=== PATIENT | male | born 1965 | race Caucasian/White ===

== ENCOUNTER → 2017-02-06 | Day surgery (SDC) | payer BC ==
[~2017-02-06] MED LIST: AUGMENTIN PO; CORTENEMA100 MG/60 PR; FLAGYL250 M1 PO; JARDIANCE25 MG PO; METFORMIN HCL500 M4 PO; NEXIUM PO; NEXIUM20 MG; PERCOCET 5-3251 TAB PO; PERCOCET 5/321 UDTAB PO
--- NOTE | ~2017-02-06 | OR ---
Unit #: [id number] #: [id number] Patient: GLEN AGUIRRE [id number] [facility] [address] [place], [place] [address] [id number] MR#: [id number] NAME: GLEN AGUIRRE. ROOM: Date of Procedure: 02/06/2017 Admission Date: 02/06/2017 Surgeon: Humberto Gutierres M.D. : 1965 Attending Physician: Humberto Gutierres M.D. Primary Care Physician: Shira French M.D. OPERATIVE REPORT PRIMARY CARE PHYSICIAN Shira French M.D. PREOPERATIVE DIAGNOSES Hematochezia and personal history of polyps. POSTOPERATIVE DIAGNOSES Proctitis and diverticulosis. PROCEDURE PERFORMED Colonoscopy to cecum with rectal biopsy x4. ANESTHESIA Monitored anesthesia. INDICATIONS FOR PROCEDURE A 51-year-old gentleman with a history of adenomatous polyps in colon who presented to the office with a several week history of recurrent hematochezia that was painless. DESCRIPTION OF PROCEDURE The patient was admitted to [facility], positively identified, and transported to the endoscopy unit. After appropriate monitoring and positioning, he was sedated by the anesthesiologist. On rectal examination, there was no local anorectal pathology and digital exam was normal. Prostate was normal to digital examination. Colonoscope was passed through the anal verge and in the rectal vault and extending up to 12 cm. The patient had proctitis. I was able to pass the scope throughout the colon to the cecum. On antegrade and retrograde visualization, there were no polyps. He had some scattered diverticula in the sigmoid colon, but the mucosa was normal above the rectum throughout the rest of the colon. As I came back in the rectal vault, random biopsies were taken to further characterize the proctitis. The patient tolerated the procedure well, but has clinical evidence of obstructive sleep apnea. It was difficult to maintain his saturations and an oral airway had to be placed at some point. Postoperatively, I am going to consult Pulmonary and Sleep Medicine to evaluate the patient. I have discussed this with his family at length. I will call him with results of the biopsy reports and discussed the proctitis with him further. In the interim, we will start him on oral Flagyl, Entocort enema, retention enemas. Unit #: [id number] #: [id number] Patient: GLEN AGUIRRE Dictated by... Joslyn Isaacs/tomeka TD: 02/07/2017 02:11 JOB #: [id number] OPERATIVE REPORT Page 1 of 1 X Humberto Gutierres MD PROCEDURE OPERATIVE NOTE
== END | disposition home or self-care (01) ==
LOC: COPS 05:27
DX: K62.89 Other specified diseases of anus and rectum (principal); K57.30 Diverticulosis of large intestine without perforation or abscess without bleeding; K21.9 Gastro-esophageal reflux disease without esophagitis; G47.30 Sleep apnea, unspecified; E11.9 Type 2 diabetes mellitus without complications; Z79.84 Long term (current) use of oral hypoglycemic drugs; Z86.010 Personal history of colon polyps; Z87.01 Personal history of pneumonia (recurrent); Z79.899 Other long term (current) drug therapy; Z90.49 Acquired absence of other specified parts of digestive tract; Z98.890 Other specified postprocedural states
CPT/HCPCS: 82947; 88305; J2250